=== PATIENT | male | born 1960 | race Caucasian/White ===

== ENCOUNTER 2017-02-13 11:11 | Emergency (ER) | payer SELFPAY ==
[~2017-02-13] VITALS: Ht 160 cm; Wt 89.0 kg
[~2017-02-13 11:11] MED LIST: LISI10TA2 PO; OMEG100016 PO
[2017-02-13 11:14] VITALS: Ht 160 cm; Wt 89.0 kg
[2017-02-13] MEDS ORDERED: SOD CHLORIDE 0.9% 1,000 ML IV STA (14:07)
== END 2017-02-13 14:33 | disposition left against medical advice (07) ==
LOC: E/R 11:11
DX: Z53.21 Procedure and treatment not carried out due to patient leaving prior to being seen by health care provider (principal)
CPT/HCPCS: J7030

== ENCOUNTER 2017-02-15 11:44 | Emergency (ER) | payer OTHER ==
[~2017-02-15] VITALS: Ht 170.2 cm; Wt 100.0 kg
[2017-02-15 11:49] VITALS: Ht 170.2 cm; Wt 100.0 kg
[2017-02-15] MEDS ORDERED: SOD CHLORIDE 0.9% 1,000 ML IV STA (13:15)
[2017-02-15] MEDS ORDERED: FAMOTIDINE 20 MG INJ IV STA (13:15)
[2017-02-15] MEDS: ONDANSETRON 4 MG INJ IV STA ×2 (13:30→13:33)
[2017-02-15 13:56] LABS: BASOPHILS % 0.3 % (0.0-2.0); EOSINOPHILS # 0.1 10^3/ul (0.0-0.5); EOSINOPHILS % 1.7 % (0.0-7.0); HEMATOCRIT 44.1 % (42.0-52.0); HEMOGLOBIN 15.9 g/dl (14.0-18.0); LYMPHOCYTES % 30.3 % (15.0-51.0); MEAN CORPUSCULAR HEMOGLOBIN 31.1 pg (29.0-33.0); MEAN CORPUSCULAR HGB CONC 36.1 g/dl (32.0-37.0); MEAN CORPUSCULAR VOLUME 86.1 fl (82.0-101.0); MEAN PLATELET VOLUME 8.6 fl (7.4-10.4); MONOCYTE # 0.5 10^3/ul (0.3-0.9); MONOCYTES % 15.7 % (0.0-11.0); NEUTROPHILS % 51.7 % (39.0-77.0); PLATELET COUNT 190 10^3/UL (140-415); RED BLOOD COUNT 5.12 10^6/ul (4.70-6.10); RED CELL DISTRIBUTION WIDTH 12.6 % (11.5-14.5); WHITE BLOOD COUNT 3.4 10^3/ul (4.8-10.8)
[2017-02-15 14:09] LABS: ADD UMIC NO; UR ASCORBIC ACID NEGATIVE (NEGATIVE); UR BILIRUBIN (Dip) NEGATIVE (NEGATIVE); UR BLOOD (Dip) NEGATIVE (NEGATIVE); UR CLARITY CLEAR (CLEAR); UR COLOR STRAW (YELLOW); UR GLUCOSE (Dip) NEGATIVE (NEGATIVE); UR KETONES (Dip) NEGATIVE (NEGATIVE); UR LEUKOCYTE ESTERASE (Dip) NEGATIVE Leu/ul (NEGATIVE); UR NITRITE (Dip) NEGATIVE (NEGATIVE); UR SPECIFIC GRAVITY (Dip) 1.004 (1.003-1.030); UR TOTAL PROTEIN (Dip) NEGATIVE (NEGATIVE); UR UROBILINOGEN (Dip) NEGATIVE (NEGATIVE)
--- NOTE | 2017-02-15 14:09 | RADRPT ---
PROCEDURE: CT abdomen and pelvis without IV contrast. CLINICAL INDICATION: Abdomen pain. TECHNIQUE: CT scan of the abdomen and pelvis was performed on a [address] scanner. The patient is scanned without IV contrast. Coronal and sagittal reformatted images were obtained from the axia l source images. Images were reviewed on a high-resolution PACS workstation. Total radiation dose: Total CTDIvol: 21.7 mGy. Total DLP: 1418 mGy-cm. One or more of the following dose reduction techniques were used: automated exposure control, adjustment of the mA and/or kV acc ording to patient size, or use of iterative reconstruction technique. COMPARISON: None available. FINDINGS: CT abdomen: The lung bases are clear. The heart is not enlarged without pericardial thickening or effusion. There is severe fatty liver. The liver is normal in size without focal hepatic mass or biliary dilat ation. The spleen is normal in size. The stomach is partially collapsed but is grossly unremarkabl e. The pancreas as visualized is normal. The gallbladder is normal and there is no evidence of biliary dilatation. The adrenal glands are symmetrical and normal. The kidneys are symmetrically normal bilaterally. N o renal obstructive uropathy or mass lesion is seen.. The aorta is normal in caliber. There is no retroperitoneal lymphadenopathy. The nadia hepatis reg ion is clear. There is diverticulosis of the left colon without evidence of diverticulitis. The bow el and mesentery, as visualized, are equally unremarkable. CT pelvis: There is diverticulosis of the sigmoid colon without evidence of diverticulitis. There is no indic ation of acute appendicitis in the right lower quadrant. The small bowel loops situated within the pelvis are unremarkable. The pelvic organs are normal. The pelvic sidewalls and inguinal regions a re clear. No mass, lymphadenopathy is seen. No acute inflammation seen. The urinary bladder is no rmal. The surrounding osseous structures are unremarkable. No osteolytic or osteoblastic lesion is detect ed. IMPRESSION: 1. Diverticulosis of the sigmoid colon/left colon without evidence of diverticulitis.. 2. Severe fatty liver. RPTAT: GG .Dakotah Eduardo MD, MD Date Time Electronically viewed and signed by .Dakotah Eduardo MD, on 02/15/2017 14:09 .Y/
[2017-02-15 14:16] LABS: ALANINE AMINOTRANSFERASE 66 IU/L (13-69); ALBUMIN 4.1 g/dl (3.3-4.9); ALBUMIN/GLOBULIN RATIO 1.36; ALKALINE PHOSPHATASE 62 IU/L (42-121); ANION GAP 11 (8-16); ASPARTATE AMINO TRANSFERASE 40 IU/L (15-46); BILIRUBIN,INDIRECT 0.4 mg/dl (0-1.1); BILIRUBIN,TOTAL 0.4 mg/dl (0.2-1.3); BLOOD UREA NITROGEN 8 mg/dl (7-20); CALCIUM 8.9 mg/dl (8.4-10.2); CARBON DIOXIDE 29 mmol/L (21-31); CHLORIDE 103 mmol/L (97-110); CREATININE 0.78 mg/dl (0.61-1.24); GLUCOSE 106 mg/dl (70-220); POTASSIUM 4.2 mmol/L (3.5-5.1); SODIUM 139 mmol/L (135-144); TOTAL PROTEIN 7.1 g/dl (6.1-8.1)
[2017-02-15 14:29] LABS: TROPONIN-I < 0.012 ng/ml (0.00-0.12)
[2017-02-15 14:54] VITALS: BP 134/88; PULSE 63; RESP 20
--- NOTE | 2017-02-15 15:02 | ERD ---
ER Documentation Chief Complaint Date/Time DATE: 02/15/17 TIME: 15:00 Chief Complaint MID ABDOMINAL PAIN,DIARRHEA,NAUSEA,CHILLS X 3 DAYS HPI This is a 56-year-old male with a history of gastritis and previous bowel obstruction who presents to the emergency room for evaluation of abdominal pain. The patient states that he has had abdominal pain nausea and chills for the past 3 days and he localizes the abdominal pain to the left portion of his abdomen. He characterizes the pain as an aching pain with no radiation. He does state that he has had mild nausea associated with this and a few episodes of nonbloody diarrhea. He denies any relieving factors for his symptoms and came to the emergency room for evaluation. ROS All systems reviewed and are negative except as per history of present illness. Medications Home Meds Reported Medications Farwell-3 Fatty Acids (Farwell-3) 1,000 Mg Capsule, 1000 MG PO BID 12/01/14 Discontinued Reported Medications Lisinopril* (Lisinopril*) 10 Mg Tablet, 10 MG PO DAILY, TAB 12/01/14 Allergies Allergies: Coded Allergies: No Known Allergy (Unverified , 03/24/16) PMhx/Soc History of Surgery: No Anesthesia Reaction: No Hx Neurological Disorder: No Hx Respiratory Disorders: No Hx Cardiac Disorders: Yes (HIGH BLOOD PRESSURE; HIGH CHOLESTEROL) Hx Psychiatric Problems: No Hx Miscellaneous Medical Probl: No Hx Alcohol Use: No Hx Substance Use: No Hx Tobacco Use: No Smoking Status: Never smoker Physical Exam Vitals Vital Signs Date Time Temp Pulse Resp B/P Pulse Ox O2 Delivery O2 Flow Rate FiO2 02/15/17 14:54 63 20 134/88 99 Room Air 02/15/17 11:49 98.7 90 18 152/80 98 Physical Exam INITIAL VITAL SIGNS: Reviewed by me GENERAL: The patient is well developed and appropriate for usual state of health in no apparent distress HEENT: Pupils equal, round, and reactive to light. EOMI. There is no scleral icterus. NECK: C-spine is soft and supple, there is no meningismus. There is no cervical lymphadenopathy. LUNGS: Clear to auscultation bilaterally. There are no rales, wheezes or rhonchi. HEART: Regular rate and rhythm, no murmurs, clicks, rubs or gallops. ABDOMEN: Left upper quadrant tenderness to palpation, otherwise soft, non-tender , non-distended. There are bowel sounds in all four quadrants. No rebound or guarding. EXTREMITIES: There is no peripheral cyanosis or edema. No focal swelling or erythema. NEUROLOGICAL: The patient moves all four extremities with 5/5 strength. Cranial nerves II - XII are intact. Normal gait. Alert and oriented SKIN: There is no apparent rash or petechiae. HEME/LYMPHATIC: There is no evidence of excessive bruising or lymphedema. PSYCHIATRIC: The patient does not appear anxious or depressed. Result Diagram: 02/15/17 1330 02/15/17 1330 Results 24 hrs Laboratory Tests Test 02/15/17 13:30 White Blood Count 3.410^3/ul Red Blood Count 5.1210^6/ul Hemoglobin 15.9g/dl Hematocrit 44.1% Mean Corpuscular Volume 86.1fl Mean Corpuscular Hemoglobin 31.1pg Mean Corpuscular Hemoglobin Concent 36.1g/dl Red Cell Distribution Width 12.6% Platelet Count 53398^3/UL Mean Platelet Volume 8.6fl Neutrophils % 51.7% Lymphocytes % 30.3% Monocytes % 15.7% Eosinophils % 1.7% Basophils % 0.3% Nucleated Red Blood Cells % 0.0/100WBC Neutrophils # (Manual) 1.810^3/ul Lymphocytes # 1.010^3/ul Monocytes # 0.510^3/ul Eosinophils # 0.110^3/ul Basophils # 0.010^3/ul Nucleated Red Blood Cells # 0.010^3/ul Urine Color STRAW Urine Clarity CLEAR Urine pH 6.0 Urine Specific [place] 1.004 Urine Ketones NEGATIVEmg/dL Urine Nitrite NEGATIVEmg/dL Urine Bilirubin NEGATIVEmg/dL Urine Urobilinogen NEGATIVEmg/dL Urine Leukocyte Esterase NEGATIVELeu/ul Urine Hemoglobin NEGATIVEmg/dL Urine Glucose NEGATIVEmg/dL Urine Total Protein NEGATIVEmg/dl Sodium Level 139mmol/L Potassium Level 4.2mmol/L Chloride Level 103mmol/L Carbon Dioxide Level 29mmol/L Anion Gap 11 Blood Urea Nitrogen 8mg/dl Creatinine 0.78mg/dl Glucose Level 106mg/dl Calcium Level 8.9mg/dl Total Bilirubin 0.4mg/dl Direct Bilirubin 0.00mg/dl Indirect Bilirubin 0.4mg/dl Aspartate Amino Transf (AST/SGOT) 40IU/L Alanine Aminotransferase (ALT/SGPT) 66IU/L Alkaline Phosphatase 62IU/L Troponin I < 0.012ng/ml Total Protein 7.1g/dl Albumin 4.1g/dl Globulin 3.00g/dl Albumin/Globulin Ratio 1.36 Lipase 94U/L Current Medications Medications (Trade) Dose Ordered Sig/Doc Route PRN Reason Start Time Stop Time Status Last Admin Dose Admin Sodium Chloride (NS) 1,000 ml @ 1,000 mls/hr Q1H STAT IV 02/15/17 13:15 02/15/17 14:14 DC 02/15/17 13:30 Ondansetron HCl (Zofran Inj) 4 mg ONCE STAT IV 02/15/17 13:15 02/15/17 13:16 DC Famotidine (Pepcid Iv) 20 mg ONCE STAT IV 02/15/17 13:15 02/15/17 13:16 DC 02/15/17 13:30 Procedures/MDM CT abdomen pelvis without: No obstruction EKG: Rate/Rhythm: [Normal Sinus Rhythm] QRS, ST, T-waves: [No changes consistent w/ acute ischemia] Impression: [No evidence of ischemia or arrhythmia] This 56-year-old male presents to the ER for evaluation of abdominal pain. He does have a previous history of a bowel obstruction. He had tenderness to palpation in the left upper quadrant and did undergo a CAT scan which does not show any signs of obstruction. His lab work is all within normal limits. The patient was given Zofran and Pepcid in the emergency room. The patient is stating his pain is improved however he still has mild pain. He will be discharged home at this time with a prescription for [place] for abdominal pain instructions to stay hydrated. I do feel patients likely suffering from nonspecific gastritis Departure Diagnosis: Primary Impression: Abdominal pain Additional Impressions: Abdominal cramps Gastritis Condition: Stable GOLDEN VELASQUEZ DO Feb 15, 2017 15:02
[2017-02-15] MEDS ORDERED: HYDR-906 PO (15:03)
[2017-02-15] MEDS ORDERED: RANI150T9 PO (15:03)
== END 2017-02-15 15:12 | disposition home or self-care (01) ==
LOC: E/R 11:44
DX: R10.12 Left upper quadrant pain (principal); K29.70 Gastritis, unspecified, without bleeding; R11.0 Nausea
CPT/HCPCS: 74176; 80053; 81003; 83690; 84484; 85025; 93005; 96374; 99285; J2405; J7030